=== PATIENT | female | born 1950 | race Two or more races ===

== ENCOUNTER 2023-03-25 13:16 | Inpatient (IN) | payer MEDICARE, OTHER ==
[~2023-03-25] VITALS: Ht 162.6 cm; Wt 48.5 kg
[2023-03-25 13:48] LABS: Basophils % (auto) 0.2 % (0.0-2.0); Eosinophils # (auto) 0 10 ^3/uL (0-0.8); Hematocrit 30.5 % (36.0-46.0); Hemoglobin 9.3 g/dL (12.2-16.2); Mean Corpuscular Hemoglobin 22.8 pg (28.0-32.0); Neutrophils % (auto) 82.4 % (37.0-80.0)
[2023-03-25 13:49] LABS: Basophils # (auto) 0.1 10 ^3/uL (0-0.2); Lymphocytes # (auto) 1.6 10 ^3/uL (0.4-5.4); Lymphocytes % (auto) 7.4 % (10.0-50.0); Mean Corpuscular Hgb Conc. 30.6 g/dL (32.0-36.0); Mean Corpuscular Volume 74.5 fL (80.0-100.0); Monocytes # (auto) 2.2 10 ^3/uL (0-1.3); Neutrophils # (auto) 17.8 10 ^3/uL (1.6-8.6); Red Blood Cells 4.09 10^6/uL (4.0-5.20); Red Cell Distribution Width 17.9 % (11.8-14.3); White Blood Cell 21.6 10^3/uL (4.4-10.8)
[2023-03-25 14:02] LABS: INR 1.15 (0.9-1.15); Partial Thromboplastin Time 30.5 SEC (24.5-34.5)
[2023-03-25] MEDS ORDERED: FUROSEMIDE 40 MG/4 ML VIAL IV ONE (14:15)
[2023-03-25] MEDS ORDERED: ASPirin 325 MG TAB PO ONE (14:15)
[2023-03-25 14:25] LABS: Alanine Aminotransferase 21 U/L (7-40); Albumin 3.6 g/dL (3.2-4.8); Alkaline Phosphatase 287 U/L (46-116); Anion Gap 10 (5-15); Aspartate Aminotransferase 30 U/L (13-40); BUN/Creatinine Ratio 20.5 (10.0-20.0); Bilirubin, Total 0.7 mg/dL (0.2-1.0); Blood Urea Nitrogen 18 mg/dL (9-23); Calcium 9.9 mg/dL (8.5-10.1); Carbon Dioxide 25 mmol/L (20-30); Chloride 97 mmol/L (98-107); Glucose 134 mg/dL (74-106); Sodium 132 mmol/L (136-145); Total Protein 6.8 g/dL (5.7-8.2)
[2023-03-25] MEDS ORDERED: levoFLOXacin 500 MG TAB PO ONE (15:00)
[2023-03-25 15:08] LABS: Hypochromia Moderate; Platelet Estimate Increased
[2023-03-25 15:10] LABS: Tear Drop Cells FEW
[2023-03-25 16:15] VITALS: PULSE 90; RESP 24; O2SAT 97
[2023-03-25 16:32] LABS: Urine Epithelial Cast None Seen /hpf (<5)
[2023-03-25 16:36] LABS: Urine Bacteria NONE SEEN /hpf (None Seen); Urine Blood Negative /uL (Negative); Urine Clarity Clear (Clear); Urine Color Yellow (Yellow); Urine Hyaline Cast FEW /lpf (0 - 2); Urine Protein, UAD 1+ (Negative); Urine Specific Gravity 1.016 (1.001-1.035); Urine Urobilinogen Normal (Negative); Urine WBC 43 /hpf (0 - 5); Urine pH 5.5 (5.0-8.0)
[2023-03-25] MEDS ORDERED: MORPHINE SULFATE INJ 2 MG/ml SYRG IV PRN (17:15)
[2023-03-25] MEDS ORDERED: ONDANSETRON HCL 4 MG/2 ML VIAL IV PRN (17:15)
[2023-03-25] MEDS: FUROSEMIDE 20 MG/2 ML VIAL IV SCH (17:44)
[2023-03-25 18:30] LABS: INR 1.17 (0.9-1.15); Prothrombin Time 12.2 sec (9.3-11.8)
[2023-03-25 18:52] LABS: % Iron Saturation 5.1 % (15-50)
[2023-03-25 19:25] LABS: Erythrocyte Sedimentation Rate 99 mm/hr (0-20)
[2023-03-25 19:34] LABS: Folate (Folic Acid) 13.14 ng/mL (>5.38)
[2023-03-25 19:35] LABS: Ferritin 469.5 ng/mL (10-291)
[2023-03-25 20:00] VITALS: PULSE 88; RESP 22; O2SAT 95
[2023-03-25 20:03] LABS: COVID19 ANTIGEN SOFIA FIA NEGATIVE (NEGATIVE); Rapid Influenza A Negative (Negative); Rapid Influenza B Negative (Negative)
[2023-03-25 21:30] LABS: Body Fluid pH 7
[2023-03-25 22:03] LABS: Body Fluid Polymorphonuclear 72 % (0-25); Body Fluid Red Blood Cells 458 CUMM (0-2000); Body Fluid White Blood Cells 895 CUMM (0-200)
[2023-03-25] MEDS: ATORVASTATIN 20 MG TAB PO SCH (22:06)
[2023-03-26] VITALS (9 sets, daily range): BP systolic 96–122; BP diastolic 42–55; PULSE 89–114; RESP 16–22; TEMP 97.5–99; O2SAT 91–99
[2023-03-26] MEDS ORDERED: CLOP75TA70 PO (01:07)
[2023-03-26] MEDS ORDERED: LEVE500T3 PO (01:07)
[2023-03-26] MEDS ORDERED: ATOR40TA52 PO (01:07)
[2023-03-26] MEDS ORDERED: LISI10TA34 PO (01:07)
[2023-03-26] MEDS: FUROSEMIDE 20 MG/2 ML VIAL IV SCH (06:00)
[2023-03-26 06:26] LABS: Basophils # (auto) 0 10 ^3/uL (0-0.2); Eosinophils # (auto) 0 10 ^3/uL (0-0.8); Lymphocytes # (auto) 0.8 10 ^3/uL (0.4-5.4); Lymphocytes % (auto) 4.3 % (10.0-50.0); White Blood Cell 19.4 10^3/uL (4.4-10.8)
[2023-03-26 06:31] LABS: Basophils % (auto) 0.2 % (0.0-2.0); Eosinophils % (auto) 0.1 % (0.0-7.0); Hematocrit 29.4 % (36.0-46.0); Hemoglobin 9.2 g/dL (12.2-16.2); Mean Corpuscular Hemoglobin 22.9 pg (28.0-32.0); Mean Corpuscular Hgb Conc. 31.2 g/dL (32.0-36.0); Mean Corpuscular Volume 73.5 fL (80.0-100.0); Monocytes # (auto) 1.5 10 ^3/uL (0-1.3); Monocytes % (auto) 7.9 % (0.0-12.0); Neutrophils % (auto) 87.5 % (37.0-80.0); Red Cell Distribution Width 17.8 % (11.8-14.3)
[2023-03-26 06:39] LABS: Alanine Aminotransferase 15 U/L (7-40); Albumin 3.4 g/dL (3.2-4.8); Alkaline Phosphatase 226 U/L (46-116); Anion Gap 9 (5-15); Aspartate Aminotransferase 33 U/L (13-40); BUN/Creatinine Ratio 21.1 (10.0-20.0); Bilirubin, Total 0.8 mg/dL (0.2-1.0); Blood Urea Nitrogen 16 mg/dL (9-23); Calcium 9.6 mg/dL (8.5-10.1); Carbon Dioxide 25 mmol/L (20-30); Chloride 99 mmol/L (98-107); Glucose 121 mg/dL (74-106); Potassium 3.9 mmol/L (3.5-5.1); Sodium 133 mmol/L (136-145); Total Protein 6.7 g/dL (5.7-8.2)
[2023-03-26] MEDS: ASPirin 81 mg TAB PO SCH (09:59)
[2023-03-26] MEDS ORDERED: levoFLOXacin 500MG 100 ML IV SCH (10:00)
[2023-03-26] MEDS: PIPERACILLIN-TAZOB 3.375GM 100 ML IV SCH ×2 (14:33→21:47)
[2023-03-26] MEDS: ATORVASTATIN 20 MG TAB PO SCH (21:43)
[2023-03-26] MEDS ORDERED: LORazepam 2MG/ML-1ML VIAL IV PRN (23:45)
[2023-03-26] MEDS ORDERED: ATORVASTATIN 20 MG TAB PO SCH (23:45)
[2023-03-27] VITALS (7 sets, daily range): BP systolic 105–120; BP diastolic 8–64; PULSE 84–99; RESP 18–22; TEMP 97.8–98.9; O2SAT 91–98
[2023-03-27] MEDS ORDERED: LORazepam 2MG/ML-1ML VIAL IV PRN
[2023-03-27 05:55] LABS: Basophils # (auto) 0 10 ^3/uL (0-0.2); Eosinophils # (auto) 0 10 ^3/uL (0-0.8); Hemoglobin 8.8 g/dL (12.2-16.2)
[2023-03-27 05:57] LABS: Basophils % (auto) 0.1 % (0.0-2.0); Eosinophils % (auto) 0.1 % (0.0-7.0); Hematocrit 28.6 % (36.0-46.0); Mean Corpuscular Hemoglobin 22.8 pg (28.0-32.0); Mean Corpuscular Volume 73.6 fL (80.0-100.0); Monocytes # (auto) 1.5 10 ^3/uL (0-1.3); Monocytes % (auto) 7.8 % (0.0-12.0); Neutrophils # (auto) 16.7 10 ^3/uL (1.6-8.6); Red Blood Cells 3.88 10^6/uL (4.0-5.20); Red Cell Distribution Width 17.6 % (11.8-14.3); White Blood Cell 19.2 10^3/uL (4.4-10.8)
[2023-03-27] MEDS: PIPERACILLIN-TAZOB 3.375GM 100 ML IV SCH ×3 (05:57→21:07)
[2023-03-27 06:03] LABS: Anion Gap 7 (5-15); Carbon Dioxide 26 mmol/L (20-30); Chloride 100 mmol/L (98-107); Sodium 133 mmol/L (136-145)
[2023-03-27 06:04] LABS: Calcium 9.7 mg/dL (8.5-10.1)
[2023-03-27 06:09] LABS: Glucose 143 mg/dL (74-106); Triglycerides 83 mg/dL (< 150)
[2023-03-27 06:10] LABS: LDL Cholesterol 37 mg/dL (< 100)
[2023-03-27 06:11] LABS: Cholesterol 67 mg/dL (< 200); HDL Cholesterol 17 mg/dL (40-59)
[2023-03-27 07:40] LABS: BUN/Creatinine Ratio 17.1 (10.0-20.0); Blood Urea Nitrogen 14 mg/dL (9-23)
[2023-03-27] MEDS: ASPirin 81 mg TAB PO SCH (08:57)
[2023-03-27] MEDS: levETIRAcetam 500 MG TAB PO SCH ×2 (08:57→21:08)
[2023-03-27] MEDS: DOCUSATE SOD 100 MG CAP PO PRN (08:58)
[2023-03-27 13:06] LABS: Protein, Body Fluid 5.2 g/dL (.)
[2023-03-27] MEDS: ATORVASTATIN 20 MG TAB PO SCH (21:08)
[2023-03-28 05:00] VITALS: BP 105/54; PULSE 91; RESP 22; TEMP 98.5; O2SAT 91
[2023-03-28] MEDS: PIPERACILLIN-TAZOB 3.375GM 100 ML IV SCH ×3 (05:48→21:12)
[2023-03-28 06:41] LABS: Basophils # (auto) 0 10 ^3/uL (0-0.2); Eosinophils # (auto) 0 10 ^3/uL (0-0.8); Mean Corpuscular Hemoglobin 22.5 pg (28.0-32.0); Mean Corpuscular Hgb Conc. 30.7 g/dL (32.0-36.0); Monocytes # (auto) 1.3 10 ^3/uL (0-1.3)
[2023-03-28 06:43] LABS: Basophils % (auto) 0.1 % (0.0-2.0); Eosinophils % (auto) 0.2 % (0.0-7.0); Hematocrit 27.6 % (36.0-46.0); Hemoglobin 8.5 g/dL (12.2-16.2); Lymphocytes % (auto) 5.5 % (10.0-50.0); Mean Corpuscular Volume 73.2 fL (80.0-100.0); Monocytes % (auto) 7.2 % (0.0-12.0); Neutrophils # (auto) 15.7 10 ^3/uL (1.6-8.6); Red Blood Cells 3.77 10^6/uL (4.0-5.20); Red Cell Distribution Width 17.3 % (11.8-14.3); White Blood Cell 18.1 10^3/uL (4.4-10.8)
[2023-03-28 07:02] LABS: Chloride 99 mmol/L (98-107); Potassium 3.7 mmol/L (3.5-5.1); Sodium 133 mmol/L (136-145)
[2023-03-28 07:03] LABS: Calcium 9.4 mg/dL (8.5-10.1)
[2023-03-28 07:08] LABS: BUN/Creatinine Ratio 20.7 (10.0-20.0); Blood Urea Nitrogen 17 mg/dL (9-23); Glucose 183 mg/dL (74-106)
[2023-03-28 07:32] LABS: Anion Gap 9 (5-15); Carbon Dioxide 25 mmol/L (20-30)
[2023-03-28 08:00] VITALS: PULSE 86; RESP 16; O2SAT 95
[2023-03-28 09:00] VITALS: BP 98/64; PULSE 89; RESP 17; TEMP 98.9; O2SAT 93
[2023-03-28] MEDS: ASPirin 81 mg TAB PO SCH (09:11)
[2023-03-28] MEDS: levETIRAcetam 500 MG TAB PO SCH ×2 (09:11→21:12)
[2023-03-28 13:00] VITALS: BP 113/58; PULSE 86; RESP 19; TEMP 98; O2SAT 96
[2023-03-28] MEDS ORDERED: LACTULOSE 20Gm/30ML SOLN PO ONE (13:45)
[2023-03-28] MEDS ORDERED: IOHEXOL 350 MG/ML 100ML IJ ONE (16:38)
[2023-03-28 20:00] VITALS: PULSE 98; RESP 18; O2SAT 95
[2023-03-28] MEDS: ATORVASTATIN 20 MG TAB PO SCH (21:12)
[2023-03-28 22:00] VITALS: BP 118/52; PULSE 94; RESP 19; TEMP 99.5; O2SAT 93
[2023-03-28] MEDS: DOCUSATE SOD 100 MG CAP PO PRN (22:35)
[2023-03-29] VITALS (7 sets, daily range): BP systolic 105–123; BP diastolic 46–82; PULSE 87–99; RESP 18–20; TEMP 98.1–99.1; O2SAT 91–97
[2023-03-29] MEDS: PIPERACILLIN-TAZOB 3.375GM 100 ML IV SCH ×3 (05:30→21:36)
[2023-03-29 07:00] LABS: Eosinophils # (auto) 0 10 ^3/uL (0-0.8); Eosinophils % (auto) 0.2 % (0.0-7.0); Lymphocytes # (auto) 0.9 10 ^3/uL (0.4-5.4); Mean Corpuscular Hemoglobin 22.4 pg (28.0-32.0)
[2023-03-29 07:03] LABS: Basophils # (auto) 0 10 ^3/uL (0-0.2); Basophils % (auto) 0.2 % (0.0-2.0); Hematocrit 29.3 % (36.0-46.0); Hemoglobin 8.9 g/dL (12.2-16.2); Lymphocytes % (auto) 4.5 % (10.0-50.0); Mean Corpuscular Hgb Conc. 30.4 g/dL (32.0-36.0); Mean Corpuscular Volume 73.7 fL (80.0-100.0); Monocytes # (auto) 1.4 10 ^3/uL (0-1.3); Monocytes % (auto) 7.4 % (0.0-12.0); Neutrophils # (auto) 17.2 10 ^3/uL (1.6-8.6); Neutrophils % (auto) 87.7 % (37.0-80.0); Red Blood Cells 3.98 10^6/uL (4.0-5.20); Red Cell Distribution Width 17.4 % (11.8-14.3); White Blood Cell 19.6 10^3/uL (4.4-10.8)
[2023-03-29 07:16] LABS: Alanine Aminotransferase 62 U/L (7-40); Albumin 3.1 g/dL (3.2-4.8); Alkaline Phosphatase 470 U/L (46-116); Anion Gap 7 (5-15); Aspartate Aminotransferase 157 U/L (13-40); BUN/Creatinine Ratio 16.2 (10.0-20.0); Bilirubin, Total 0.7 mg/dL (0.2-1.0); Blood Urea Nitrogen 11 mg/dL (9-23); Calcium 9.3 mg/dL (8.7-10.4); Carbon Dioxide 25 mmol/L (20-30); Chloride 99 mmol/L (98-107); Glucose 135 mg/dL (74-106); Potassium 3.9 mmol/L (3.5-5.1); Sodium 131 mmol/L (136-145); Total Protein 6.4 g/dL (5.7-8.2)
[2023-03-29] MEDS: levETIRAcetam 500 MG TAB PO SCH ×2 (09:08→21:35)
[2023-03-29] MEDS: ASPirin 81 mg TAB PO SCH (09:08)
[2023-03-29] MEDS ORDERED: AZITHROMYCIN 500MG/ 250ML 250 ML IV ONE (14:00)
[2023-03-29] MEDS: DOCUSATE SOD 100 MG CAP PO PRN (21:35)
[2023-03-29] MEDS: ATORVASTATIN 20 MG TAB PO SCH (21:35)
[2023-03-30] VITALS (7 sets, daily range): BP systolic 103–129; BP diastolic 48–54; PULSE 84–116; RESP 17–20; TEMP 98–98.5; O2SAT 90–96
[2023-03-30 04:51] LABS: Hemoglobin 8.9 g/dL (12.2-16.2)
[2023-03-30 04:53] LABS: Basophils # (auto) 0 10 ^3/uL (0-0.2); Basophils % (auto) 0.1 % (0.0-2.0); Eosinophils # (auto) 0.1 10 ^3/uL (0-0.8); Eosinophils % (auto) 0.4 % (0.0-7.0); Hematocrit 28.6 % (36.0-46.0); Lymphocytes % (auto) 5.2 % (10.0-50.0); Mean Corpuscular Hemoglobin 22.7 pg (28.0-32.0); Mean Corpuscular Volume 73.1 fL (80.0-100.0); Monocytes # (auto) 1.7 10 ^3/uL (0-1.3); Monocytes % (auto) 8.8 % (0.0-12.0); Neutrophils # (auto) 16.9 10 ^3/uL (1.6-8.6); Neutrophils % (auto) 85.5 % (37.0-80.0); Red Blood Cells 3.92 10^6/uL (4.0-5.20); Red Cell Distribution Width 17.5 % (11.8-14.3); White Blood Cell 19.8 10^3/uL (4.4-10.8)
[2023-03-30] MEDS: PIPERACILLIN-TAZOB 3.375GM 100 ML IV SCH ×3 (05:45→21:12)
[2023-03-30] MEDS ORDERED: AZITHROMYCIN 500MG/ 250ML 250 ML IV SCH (10:00)
[2023-03-30] MEDS: levETIRAcetam 500 MG TAB PO SCH ×2 (10:22→21:12)
[2023-03-30] MEDS: ASPirin 81 mg TAB PO SCH (10:22)
[2023-03-30] MEDS ORDERED: LACTULOSE 20Gm/30ML SOLN PO PRN (10:45)
[2023-03-30] MEDS: ATORVASTATIN 20 MG TAB PO SCH (21:12)
[2023-03-31] VITALS (10 sets, daily range): BP systolic 113–125; BP diastolic 45–87; PULSE 75–105; RESP 15–18; TEMP 97.7–98.2; O2SAT 92–98
[2023-03-31] MEDS: PIPERACILLIN-TAZOB 3.375GM 100 ML IV SCH (05:38)
[2023-03-31 05:46] LABS: Basophils # (auto) 0.1 10 ^3/uL (0-0.2); Basophils % (auto) 0.3 % (0.0-2.0); Eosinophils # (auto) 0.1 10 ^3/uL (0-0.8); Eosinophils % (auto) 0.3 % (0.0-7.0); Hematocrit 27.7 % (36.0-46.0); Hemoglobin 8.4 g/dL (12.2-16.2); Lymphocytes # (auto) 0.9 10 ^3/uL (0.4-5.4); Lymphocytes % (auto) 4.5 % (10.0-50.0); Mean Corpuscular Hemoglobin 22.2 pg (28.0-32.0); Mean Corpuscular Hgb Conc. 30.3 g/dL (32.0-36.0); Mean Corpuscular Volume 73.3 fL (80.0-100.0); Monocytes # (auto) 1.9 10 ^3/uL (0-1.3); Monocytes % (auto) 9.2 % (0.0-12.0); Neutrophils # (auto) 17.7 10 ^3/uL (1.6-8.6); Neutrophils % (auto) 85.7 % (37.0-80.0); Red Blood Cells 3.78 10^6/uL (4.0-5.20); Red Cell Distribution Width 17.5 % (11.8-14.3); White Blood Cell 20.6 10^3/uL (4.4-10.8)
[2023-03-31 06:11] LABS: Alanine Aminotransferase 32 U/L (7-40); Alkaline Phosphatase 382 U/L (46-116); Anion Gap 8 (5-15); Aspartate Aminotransferase 43 U/L (13-40); BUN/Creatinine Ratio 15.7 (10.0-20.0); Blood Urea Nitrogen 11 mg/dL (9-23); Calcium 9.4 mg/dL (8.5-10.1); Carbon Dioxide 24 mmol/L (20-30); Chloride 99 mmol/L (98-107); Glucose 178 mg/dL (74-106); Potassium 3.7 mmol/L (3.5-5.1); Sodium 131 mmol/L (136-145)
[2023-03-31 06:12] LABS: Bilirubin, Total 0.5 mg/dL (0.2-1.0)
[2023-03-31] MEDS ORDERED: NALOXONE HCL 0.4 MG/ML VIAL ONE (07:52)
[2023-03-31] MEDS ORDERED: EPINEPHrine HCL 1 MG/1 ML AMP ONE (07:53)
[2023-03-31] MEDS ORDERED: LIDOCAINE 2% JELLY 11ml (GLYDO) ONE (07:53)
[2023-03-31] MEDS ORDERED: SODIUM CHLORIDE LOCK 10 ML ONE (07:53)
[2023-03-31] MEDS ORDERED: LIDOCAINE 2%HCL (LOCAL ANESTH.) INJ 20ML MDV ONE (07:53)
[2023-03-31] MEDS ORDERED: GLYCOPYRROLATE 0.2 MG/ML 1ML VIAL ONE (07:53)
[2023-03-31] MEDS ORDERED: FLUMAZENIL 0.1 MG/ML INJ 10ML MDV IV ONE (07:53)
[2023-03-31] MEDS ORDERED: MIDAZOLAM HCL 5 MG/ML-1ML VIAL ONE (07:54)
[2023-03-31] MEDS: fentaNYL CITRATE 100 MCG/2 ML VL ONE ×2 (09:17→09:27)
[2023-03-31] MEDS: levETIRAcetam 500 MG TAB PO SCH ×2 (10:00→21:36)
[2023-03-31] MEDS: ASPirin 81 mg TAB PO SCH (10:00)
[2023-03-31] MEDS: DOXYCYCLINE 100MG/250ML 250 ML IV SCH (13:00)
[2023-03-31] MEDS: SODIUM CHLORIDE 0.9% 1,000 ML IV SCH ×2 (16:40)
[2023-03-31] MEDS: ATORVASTATIN 20 MG TAB PO SCH (21:36)
[2023-04-01] VITALS (7 sets, daily range): BP systolic 120–139; BP diastolic 55–68; PULSE 48–98; RESP 16–18; TEMP 97.5–98.9; O2SAT 94–100
[2023-04-01] MEDS: DOXYCYCLINE 100MG/250ML 250 ML IV SCH ×2 (00:47→11:41)
[2023-04-01 07:48] LABS: Anion Gap 7 (5-15); Calcium 9.4 mg/dL (8.5-10.1); Carbon Dioxide 25 mmol/L (20-30); Chloride 102 mmol/L (98-107); Potassium 3.7 mmol/L (3.5-5.1); Sodium 134 mmol/L (136-145)
[2023-04-01 07:52] LABS: Basophils % (auto) 0.3 % (0.0-2.0); Eosinophils # (auto) 0.1 10 ^3/uL (0-0.8); Eosinophils % (auto) 0.6 % (0.0-7.0); Hemoglobin 7.7 g/dL (12.2-16.2); Neutrophils % (auto) 86.5 % (37.0-80.0)
[2023-04-01 07:54] LABS: BUN/Creatinine Ratio 19.3 (10.0-20.0); Basophils # (auto) 0 10 ^3/uL (0-0.2); Blood Urea Nitrogen 11 mg/dL (9-23); Glucose 156 mg/dL (74-106); Hematocrit 25.4 % (36.0-46.0); Lymphocytes % (auto) 5.5 % (10.0-50.0); Mean Corpuscular Hemoglobin 22.3 pg (28.0-32.0); Mean Corpuscular Hgb Conc. 30.3 g/dL (32.0-36.0); Mean Corpuscular Volume 73.5 fL (80.0-100.0); Monocytes # (auto) 1.2 10 ^3/uL (0-1.3); Monocytes % (auto) 7.1 % (0.0-12.0); Neutrophils # (auto) 15.1 10 ^3/uL (1.6-8.6); Red Blood Cells 3.45 10^6/uL (4.0-5.20); Red Cell Distribution Width 17.2 % (11.8-14.3); White Blood Cell 17.4 10^3/uL (4.4-10.8)
[2023-04-01] MEDS: SODIUM CHLORIDE 0.9% 1,000 ML IV SCH (09:20)
[2023-04-01] MEDS: ASPirin 81 mg TAB PO SCH (09:20)
[2023-04-01] MEDS: levETIRAcetam 500 MG TAB PO SCH ×2 (09:20→22:26)
[2023-04-01] MEDS: Ensure HIGH Protein Chocolate 8oz Bottle PO SCH (17:52)
[2023-04-01] MEDS: ATORVASTATIN 20 MG TAB PO SCH (22:23)
[2023-04-02] VITALS (8 sets, daily range): BP systolic 132–147; BP diastolic 56–74; PULSE 86–103; RESP 16–22; TEMP 97.3–99.8; O2SAT 90–99
[2023-04-02] MEDS: DOXYCYCLINE 100MG/250ML 250 ML IV SCH ×2 (00:33→11:43)
[2023-04-02] MEDS: SODIUM CHLORIDE 0.9% 1,000 ML IV SCH ×2 (00:50→17:01)
[2023-04-02 04:59] LABS: Basophils # (auto) 0 10 ^3/uL (0-0.2); Basophils % (auto) 0.2 % (0.0-2.0); Eosinophils # (auto) 0.1 10 ^3/uL (0-0.8); Hemoglobin 7.8 g/dL (12.2-16.2); Lymphocytes # (auto) 0.7 10 ^3/uL (0.4-5.4); Mean Corpuscular Volume 73.5 fL (80.0-100.0); Monocytes % (auto) 7.3 % (0.0-12.0)
[2023-04-02 05:03] LABS: Eosinophils % (auto) 0.5 % (0.0-7.0); Hematocrit 25.3 % (36.0-46.0); Lymphocytes % (auto) 4.2 % (10.0-50.0); Mean Corpuscular Hemoglobin 22.7 pg (28.0-32.0); Mean Corpuscular Hgb Conc. 30.8 g/dL (32.0-36.0); Monocytes # (auto) 1.1 10 ^3/uL (0-1.3); Neutrophils # (auto) 13.6 10 ^3/uL (1.6-8.6); Neutrophils % (auto) 87.8 % (37.0-80.0); Red Blood Cells 3.45 10^6/uL (4.0-5.20); Red Cell Distribution Width 17.4 % (11.8-14.3); White Blood Cell 15.5 10^3/uL (4.4-10.8)
[2023-04-02 05:29] LABS: Anion Gap 8 (5-15); Carbon Dioxide 22 mmol/L (20-30); Chloride 100 mmol/L (98-107); Potassium 3.7 mmol/L (3.5-5.1); Sodium 130 mmol/L (136-145)
[2023-04-02 05:30] LABS: Calcium 9.2 mg/dL (8.7-10.4)
[2023-04-02 05:35] LABS: BUN/Creatinine Ratio 16.4 (10.0-20.0); Blood Urea Nitrogen 9 mg/dL (9-23); Glucose 178 mg/dL (74-106)
[2023-04-02] MEDS: Ensure HIGH Protein Chocolate 8oz Bottle PO SCH ×3 (08:00→17:02)
[2023-04-02] MEDS: ASPirin 81 mg TAB PO SCH (08:56)
[2023-04-02] MEDS: levETIRAcetam 500 MG TAB PO SCH ×2 (08:56→22:33)
[2023-04-02] MEDS: ATORVASTATIN 20 MG TAB PO SCH (22:33)
[2023-04-03] VITALS (7 sets, daily range): BP systolic 111–161; BP diastolic 53–76; PULSE 78–115; RESP 16–20; TEMP 97.3–99; O2SAT 92–100
[2023-04-03] MEDS: DOXYCYCLINE 100MG/250ML 250 ML IV SCH ×2 (00:55→12:31)
[2023-04-03 06:49] LABS: Basophils # (auto) 0 10 ^3/uL (0-0.2); Basophils % (auto) 0.3 % (0.0-2.0); Eosinophils # (auto) 0.1 10 ^3/uL (0-0.8); Lymphocytes # (auto) 0.7 10 ^3/uL (0.4-5.4)
[2023-04-03 06:52] LABS: Anion Gap 7 (5-15); Carbon Dioxide 25 mmol/L (20-30); Chloride 100 mmol/L (98-107); Potassium 3.5 mmol/L (3.5-5.1); Sodium 132 mmol/L (136-145)
[2023-04-03 06:53] LABS: Eosinophils % (auto) 0.5 % (0.0-7.0); Hematocrit 25.8 % (36.0-46.0); Hemoglobin 7.9 g/dL (12.2-16.2); Lymphocytes % (auto) 4.5 % (10.0-50.0); Mean Corpuscular Hemoglobin 22.5 pg (28.0-32.0); Mean Corpuscular Hgb Conc. 30.8 g/dL (32.0-36.0); Mean Corpuscular Volume 72.9 fL (80.0-100.0); Monocytes % (auto) 6.3 % (0.0-12.0); Neutrophils # (auto) 14.5 10 ^3/uL (1.6-8.6); Neutrophils % (auto) 88.4 % (37.0-80.0); Red Blood Cells 3.54 10^6/uL (4.0-5.20); White Blood Cell 16.4 10^3/uL (4.4-10.8)
[2023-04-03 06:54] LABS: Calcium 9.5 mg/dL (8.5-10.1)
[2023-04-03 06:58] LABS: Blood Urea Nitrogen 11 mg/dL (9-23); Glucose 149 mg/dL (74-106)
[2023-04-03] MEDS: Ensure HIGH Protein Chocolate 8oz Bottle PO SCH ×3 (08:00→18:01)
[2023-04-03] MEDS: ASPirin 81 mg TAB PO SCH (10:08)
[2023-04-03] MEDS: levETIRAcetam 500 MG TAB PO SCH ×2 (10:08→21:22)
[2023-04-03] MEDS: SODIUM CHLORIDE 0.9% 1,000 ML IV SCH (10:14)
[2023-04-03] MEDS: ATORVASTATIN 20 MG TAB PO SCH (21:22)
[2023-04-04] VITALS (8 sets, daily range): BP systolic 115–142; BP diastolic 58–67; PULSE 89–102; RESP 14–21; TEMP 97.5–98.4; O2SAT 95–100
[2023-04-04] MEDS: DOXYCYCLINE 100MG/250ML 250 ML IV SCH ×2 (00:59→11:27)
[2023-04-04] MEDS: levETIRAcetam 500 MG TAB PO SCH ×2 (09:20→21:17)
[2023-04-04] MEDS: ASPirin 81 mg TAB PO SCH (09:20)
[2023-04-04] MEDS: Ensure HIGH Protein Chocolate 8oz Bottle PO SCH (09:22)
[2023-04-04] MEDS: ATORVASTATIN 20 MG TAB PO SCH (21:17)
[2023-04-05] VITALS (8 sets, daily range): BP systolic 114–134; BP diastolic 52–71; PULSE 74–99; RESP 16–18; TEMP 97.4–98.7; O2SAT 90–100
[2023-04-05] MEDS: DOXYCYCLINE 100MG/250ML 250 ML IV SCH ×2 (00:17→13:18)
[2023-04-05] MEDS: Ensure HIGH Protein Chocolate 8oz Bottle PO SCH ×5 (09:54→18:36)
[2023-04-05] MEDS: ASPirin 81 mg TAB PO SCH (09:54)
[2023-04-05] MEDS: levETIRAcetam 500 MG TAB PO SCH ×2 (09:54→21:07)
[2023-04-05] MEDS: ATORVASTATIN 20 MG TAB PO SCH (21:07)
[2023-04-06] MEDS: DOXYCYCLINE 100MG/250ML 250 ML IV SCH ×2 (01:18→13:07)
[2023-04-06 05:24] VITALS: BP 121/58; PULSE 89; RESP 18; TEMP 98.1; O2SAT 99
[2023-04-06 08:00] VITALS: PULSE 91
[2023-04-06 08:15] VITALS: PULSE 91; RESP 20; O2SAT 97
[2023-04-06] MEDS: levETIRAcetam 500 MG TAB PO SCH (09:18)
[2023-04-06] MEDS: ASPirin 81 mg TAB PO SCH (09:18)
[2023-04-06] MEDS: Ensure HIGH Protein Chocolate 8oz Bottle PO SCH ×2 (09:19→13:10)
[2023-04-06 10:46] VITALS: BP 121/54; PULSE 91; RESP 20; TEMP 97.6; O2SAT 97
[2023-04-06] MEDS ORDERED: LORazepam 2MG/ML-1ML VIAL IV ONE (11:30)
[2023-04-06 11:43] LABS: Basophils # (auto) 0 10 ^3/uL (0-0.2); Basophils % (auto) 0.3 % (0.0-2.0); Hemoglobin 7.3 g/dL (12.2-16.2); Monocytes # (auto) 1.4 10 ^3/uL (0-1.3)
[2023-04-06 11:44] LABS: Eosinophils # (auto) 0.1 10 ^3/uL (0-0.8); Eosinophils % (auto) 0.4 % (0.0-7.0); Hematocrit 24.8 % (36.0-46.0); Lymphocytes % (auto) 5.7 % (10.0-50.0); Mean Corpuscular Hemoglobin 22.3 pg (28.0-32.0); Mean Corpuscular Hgb Conc. 29.6 g/dL (32.0-36.0); Mean Corpuscular Volume 75.2 fL (80.0-100.0); Monocytes % (auto) 7.7 % (0.0-12.0); Neutrophils # (auto) 15.1 10 ^3/uL (1.6-8.6); Neutrophils % (auto) 85.9 % (37.0-80.0); Red Blood Cells 3.29 10^6/uL (4.0-5.20); Red Cell Distribution Width 17.9 % (11.8-14.3); White Blood Cell 17.6 10^3/uL (4.4-10.8)
[2023-04-06 12:59] LABS: COVID19 ANTIGEN SOFIA FIA NEGATIVE (NEGATIVE)
[2023-04-06 13:17] VITALS: BP 113/41; PULSE 80; RESP 19; TEMP 97.7; O2SAT 100
[2023-04-06 13:31] VITALS: BP 121/54; PULSE 91; RESP 20; TEMP 97.6
== END 2023-04-06 16:27 | DRG 871 ==
LOC: ER 13:16 → TELE 17:23 → TELE-WESTW 23:34
PROVIDERS: ADMIT Nurse Practitioner Family; ATTEND Internal Medicine
PROC: 0W9B3ZZ Drainage of Left Pleural Cavity, Percutaneous Approach (ICD-10-PCS; principal; 2023-03-25)
PROC: 0B9J8ZX Drainage of Left Lower Lung Lobe, Via Natural or Artificial Opening Endoscopic, Diagnostic (ICD-10-PCS; 2023-03-31)
DX: A41.9 Sepsis, unspecified organism (principal); G93.41 Metabolic encephalopathy; J96.01 Acute respiratory failure with hypoxia; J18.9 Pneumonia, unspecified organism; D62 Acute posthemorrhagic anemia; E87.1 Hypo-osmolality and hyponatremia; N39.0 Urinary tract infection, site not specified; J98.11 Atelectasis; C34.92 Malignant neoplasm of unspecified part of left bronchus or lung; J91.8 Pleural effusion in other conditions classified elsewhere; R64 Cachexia; Z68.1 Body mass index [BMI] 19.9 or less, adult; D75.839 Thrombocytosis, unspecified; G40.409 Other generalized epilepsy and epileptic syndromes, not intractable, without status epilepticus; I65.23 Occlusion and stenosis of bilateral carotid arteries; I10 Essential (primary) hypertension; E78.5 Hyperlipidemia, unspecified; Z20.822 Contact with and (suspected) exposure to COVID-19; K59.00 Constipation, unspecified; R74.01 Elevation of levels of liver transaminase levels; Z86.73 Personal history of transient ischemic attack (TIA), and cerebral infarction without residual deficits; Z79.899 Other long term (current) drug therapy; Z85.3 Personal history of malignant neoplasm of breast; Z90.12 Acquired absence of left breast and nipple; Z87.891 Personal history of nicotine dependence; Z80.3 Family history of malignant neoplasm of breast; Z82.0 Family history of epilepsy and other diseases of the nervous system
CPT/HCPCS: 31624; 32555; 36415; 70450; 70496; 70551; 71045; 71250; 76604; 80048; 80053; 80061; 81001; 82378; 82607; 82728; 82746; 83540; 83550; 83605; 83735; 83986; 84484; 85025; 85045; 85610; 85652; 85730; 86141; 86304; 86850; 86900; 86901; 87040; 87070; 87077; 87086; 87205; 87426; 87804; 89051; 92610; 93005; 93306; 93886; 95819; 96374; 97110; 97116; 97163; 97530; 99291; G0378; J0171; J1956; J2250; J2543; J3490